=== PATIENT | male | born 1965 | race Caucasian/White ===

== ENCOUNTER 2020-09-14 10:39 | Day surgery (SDC) | payer OTHER ==
[~2020-09-14] VITALS: Ht 175.3 cm; Wt 103.5 kg
== END 2020-09-14 13:40 | disposition home or self-care (01) ==
LOC: ORSCSDS 10:39
PROVIDERS: Student in an Organized Health Care Education/Training Program
PROC: 0DBH8ZX Excision of Cecum, Via Natural or Artificial Opening Endoscopic, Diagnostic (ICD-10-PCS; principal; 2020-09-14 12:00)
PROC: 0DBK8ZX Excision of Ascending Colon, Via Natural or Artificial Opening Endoscopic, Diagnostic (ICD-10-PCS; principal; 2020-09-14 12:00)
PROC: 0DBP8ZX Excision of Rectum, Via Natural or Artificial Opening Endoscopic, Diagnostic (ICD-10-PCS; principal; 2020-09-14 12:00)
PROC: 0DBL8ZX Excision of Transverse Colon, Via Natural or Artificial Opening Endoscopic, Diagnostic (ICD-10-PCS; principal; 2020-09-14 12:00)
DX: K92.1 Melena (principal); D12.2 Benign neoplasm of ascending colon; D12.0 Benign neoplasm of cecum; D12.3 Benign neoplasm of transverse colon; K62.1 Rectal polyp; K64.8 Other hemorrhoids; K64.4 Residual hemorrhoidal skin tags; G47.33 Obstructive sleep apnea (adult) (pediatric); K21.9 Gastro-esophageal reflux disease without esophagitis; E66.9 Obesity, unspecified; Z68.33 Body mass index [BMI] 33.0-33.9, adult; Z87.891 Personal history of nicotine dependence
CPT/HCPCS: 88305; J2704; J7120